=== PATIENT | male | born 1975 ===

== ENCOUNTER 2021-05-25 11:45 | Inpatient (IN) | payer OTHER ==
[~2021-05-25] VITALS: Ht 167.6 cm; Wt 150.0 kg
[2021-06-02] MEDS ORDERED: HYOSCYAMINE0.125 M1 SL (12:22)
[2021-06-02] MEDS ORDERED: OXYC1TAB9 PO (12:22)
[2021-06-02] MEDS ORDERED: INTESTINEX680 M1 PO (12:23)
== END 2021-06-02 14:37 | disposition home or self-care (01) | DRG 330 ==
LOC: O/R 05-30 05:47 → SURH 05-30 11:45
PROVIDERS: ADMIT Surgery; ATTEND Surgery
PROC: 0DBP4ZZ Excision of Rectum, Percutaneous Endoscopic Approach (ICD-10-PCS; 2021-05-30)
PROC: 0DTN4ZZ Resection of Sigmoid Colon, Percutaneous Endoscopic Approach (ICD-10-PCS; principal; 2021-05-30 13:30)
PROC: BT00ZZZ Plain Radiography of Bladder (ICD-10-PCS; 2021-06-02)
DX: K57.20 Diverticulitis of large intestine with perforation and abscess without bleeding (principal); N32.1 Vesicointestinal fistula; D50.9 Iron deficiency anemia, unspecified; R14.0 Abdominal distension (gaseous)